=== PATIENT | female | born 1965 | race African-American/Black ===

== ENCOUNTER 2024-11-17 15:10 | Inpatient (IN) | payer MEDICARE, OTHER ==
[~2024-11-17] VITALS: Ht 170.2 cm; Wt 57.6 kg
[2024-11-17 15:58] LABS: BASOPHILS % (AUTO) 1.2 % (0.0-2.0); EOSINOPHILS # (AUTO) 0.1 K/uL (0.0-0.7); EOSINOPHILS % (AUTO) 1.4 % (0.0-6.0); HEMATOCRIT 43 % (33-45); HEMOGLOBIN 13.3 g/dL (11.5-14.8); LYMPHOCYTES % (AUTO) 26.6 % (20.0-44.0); MEAN CORPUSCULAR HEMOGLOBIN 28 PG (26.0-33.0); MEAN CORPUSCULAR HGB CONC 31 g/dl (31.0-36.0); MEAN CORPUSCULAR VOLUME 90 fL (82-100); MONOCYTES # (AUTO) 0.6 K/uL (0.1-1.30); MONOCYTES % (AUTO) 15.5 % (2.0-12.0); NEUTROPHILS % (AUTO) 55.3 % (43.0-81.0); PLATELET COUNT (AUTO) 195 K/uL (150-450); RED BLOOD CELL COUNT(AUTO) 4.77 MIL/uL (4.0-5.2); RED CELL DISTRIBUTION WIDTH 19.3 % (11.5-15.0); WHITE BLOOD COUNT (AUTO) 3.7 K/uL (4.3-11.0)
[2024-11-17] MEDS ORDERED: hydrALAZINE HCL IV 20 MG VIAL ONE (16:00)
[2024-11-17 16:13] LABS: CALCIUM, SERUM 9.1 mg/dL (8.5-10.1); POTASSIUM 4.9 mmol/L (3.5-5.1)
[2024-11-17] MEDS: hydrALAZINE HCL IV 20 MG VIAL IV ONE (16:13)
[2024-11-17 16:17] LABS: ALBUMIN 3.3 g/dL (3.4-5.0); BILIRUBIN,TOTAL 0.5 mg/dL (0.2-1.0); CREATININE 10.8 mg/dL (0.6-1.3); MAGNESIUM 2.4 mg/dL (1.8-2.4); PHOSPHORUS 5.1 mg/dL (2.5-4.9); TOTAL PROTEIN, SERUM 7.7 g/dL (6.4-8.2)
[2024-11-17 18:00] VITALS: BP 154/101; TEMP 97.7; O2SAT 99
[2024-11-17] MEDS ORDERED: Z GUARD REMEDY 4 OZ OINT TP PRN (19:30)
[2024-11-17] MEDS ORDERED: MAG HYDROX/AL HYDROX/SIMETH 30 ML UDC PO PRN (19:30)
[2024-11-17] MEDS ORDERED: MAGNESIUM HYDROXIDE 30 ML UDC PO PRN (19:30)
[2024-11-17 20:00] VITALS: BP 220/100; TEMP 98.8; O2SAT 99
[2024-11-17 20:13] LABS: ANISOCYTOSIS 1+; BAND % (MANUAL) 1 % (0.0-5.0); EOSINOPHILS % (MANUAL) 2 % (0-4); LYMPHOCYTES % (MANUAL) 26 % (16-48); MONOCYTES % (MANUAL) 13 % (0-11.0); NEUTROPHILS % (MANUAL) 58 (42-76); PLATELET ESTIMATE ADEQUATE; TARGET CELLS 1+
[2024-11-17] MEDS: hydrALAZINE HCL IV 20 MG VIAL IV PRN (20:51)
[2024-11-18] VITALS: BP 160/100; TEMP 98.2; O2SAT 97
[2024-11-18] MEDS: ACETAMINOPHEN 325 MG TABLET PO PRN (01:51)
[2024-11-18 04:00] VITALS: BP 143/97; TEMP 98.2; O2SAT 97
[2024-11-18 08:00] VITALS: BP 152/78; TEMP 97.5; O2SAT 97
[2024-11-18] MEDS ORDERED: FOLI0.8T2 PO (10:03)
[2024-11-18] MEDS ORDERED: NIFE90TA61 PO (10:03)
[2024-11-18] MEDS ORDERED: LOPE-83 PO (10:03)
[2024-11-18] MEDS ORDERED: METO25TA20 PO (10:03)
[2024-11-18 12:00] VITALS: BP 153/88; TEMP 97.9; O2SAT 100
[2024-11-18 16:00] VITALS: BP 166/108; TEMP 97.9; O2SAT 99
[2024-11-18 16:11] LABS: BASOPHILS % (AUTO) 1.4 % (0.0-2.0); EOSINOPHILS % (AUTO) 0.9 % (0.0-6.0); HEMATOCRIT 43 % (33-45); HEMOGLOBIN 13.2 g/dL (11.5-14.8); LYMPHOCYTES # (AUTO) 0.6 K/uL (0.8-4.8); LYMPHOCYTES % (AUTO) 19.9 % (20.0-44.0); MEAN CORPUSCULAR HEMOGLOBIN 28 PG (26.0-33.0); MEAN CORPUSCULAR HGB CONC 31 g/dl (31.0-36.0); MEAN CORPUSCULAR VOLUME 89 fL (82-100); MONOCYTES # (AUTO) 0.5 K/uL (0.1-1.30); MONOCYTES % (AUTO) 17.4 % (2.0-12.0); NEUTROPHILS # (AUTO) 1.7 K/uL (1.8-8.9); NEUTROPHILS % (AUTO) 60.4 % (43.0-81.0); PLATELET COUNT (AUTO) 183 K/uL (150-450); RED CELL DISTRIBUTION WIDTH 19.6 % (11.5-15.0); WHITE BLOOD COUNT (AUTO) 2.8 K/uL (4.3-11.0)
[2024-11-18 16:28] LABS: CALCIUM, SERUM 8.7 mg/dL (8.5-10.1); MAGNESIUM 2.2 mg/dL (1.8-2.4); PHOSPHORUS 3.7 mg/dL (2.5-4.9); POTASSIUM 4.1 mmol/L (3.5-5.1)
[2024-11-18 16:31] LABS: CREATININE 9.7 mg/dL (0.6-1.3)
[2024-11-18] MEDS: METOPROLOL TARTRATE 25 MG TABLET PO SCH (16:50)
[2024-11-18 17:13] LABS: EOSINOPHILS % (MANUAL) 3 % (0-4); LYMPHOCYTES % (MANUAL) 20 % (16-48); MONOCYTES % (MANUAL) 16 % (0-11.0); NEUTROPHILS % (MANUAL) 61 (42-76)
[2024-11-18 17:14] LABS: ANISOCYTOSIS 1+; HYPOCHROMASIA 1+; PLATELET ESTIMATE ADEQUATE
[2024-11-18 20:00] VITALS: BP 165/106; TEMP 97.7; O2SAT 97
[2024-11-18] MEDS: EXCEDRIN PO PRN (20:33)
[2024-11-18] MEDS: ONDANSETRON HCL/PF 4 MG/2 ML VIAL IVP PRN (20:46)
[2024-11-19] VITALS: BP 142/99; TEMP 97.7; O2SAT 97
[2024-11-19 04:00] VITALS: BP 151/98; TEMP 98.8; O2SAT 98
[2024-11-19 07:07] LABS: HEPATITIS B SURFACE AB (QUAL) Non Reactive (.)
[2024-11-19 08:00] VITALS: BP 147/95; TEMP 98.6; O2SAT 100
[2024-11-19] MEDS: NIFEdipine XL (30MG) 30 MG TAB PO SCH (08:42)
[2024-11-19 12:00] VITALS: BP 162/101; TEMP 98.4; O2SAT 100
[2024-11-19 16:00] VITALS: BP 150/107; TEMP 97.9; O2SAT 100
[2024-11-19 20:00] VITALS: BP 140/101; TEMP 98.2; O2SAT 100
[2024-11-20] VITALS: BP 130/91; TEMP 98.1; O2SAT 100
[2024-11-20 04:00] VITALS: BP 140/96; TEMP 98.4; O2SAT 100
[2024-11-20 08:00] VITALS: BP 164/78; TEMP 98.4; O2SAT 100
[2024-11-20] MEDS ORDERED: METO50TA16 PO (10:01)
[2024-11-20 12:00] VITALS: BP 168/105; TEMP 98.2; O2SAT 95
[2024-11-20 12:16] VITALS: BP 168/101
== END 2024-11-20 15:19 | DRG 280 ==
LOC: ER 15:12 → TELE1 17:33
PROVIDERS: ADMIT Internal Medicine; ATTEND Internal Medicine
PROC: 5A1D70Z Performance of Urinary Filtration, Intermittent, Less than 6 Hours Per Day (ICD-10-PCS; principal; 2024-11-17)
DX: I16.0 Hypertensive urgency (principal); N18.6 End stage renal disease; I21.A1 Myocardial infarction type 2; E87.70 Fluid overload, unspecified; I12.0 Hypertensive chronic kidney disease with stage 5 chronic kidney disease or end stage renal disease; E78.5 Hyperlipidemia, unspecified; E83.9 Disorder of mineral metabolism, unspecified; Z91.158 Patient's noncompliance with renal dialysis for other reason; Z99.2 Dependence on renal dialysis; Z86.73 Personal history of transient ischemic attack (TIA), and cerebral infarction without residual deficits; G40.909 Epilepsy, unspecified, not intractable, without status epilepticus; E11.22 Type 2 diabetes mellitus with diabetic chronic kidney disease; R22.32 Localized swelling, mass and lump, left upper limb
CPT/HCPCS: 36415; 71045-TC; 76882; 80048-TC; 80053-TC; 83735-TC; 84100-TC; 84484-TC; 85025-TC; 86704; 86706; 87081-TC; 87340; 90935-TC; 93307-TC; A4217; G0378; J0360; J2405; J7030